=== PATIENT | male | born 2000 | race African-American/Black ===

== ENCOUNTER → 2018-11-28 | Outpatient (CLI) | payer MEDICAID ==
--- NOTE | 2018-11-30 17:55 | NEURO WORKBENCH EEG REPORT ---
EEG Report Patient: Hernandez Champion ID: [id number] Referring Doctor: Cabrera Yun Date: 11/28/2018 Reason for study: Evaluate Epileptiform activity Medications: Levetiracetam, Oxcarbazepine, Concerta, Guanfacine, Invega History: This is a 18 year old male with a history of memory loss, headaches, autism, and seizures starting in January 2018. This EEG was requested for evaluation of epileptiform activity. EEG Interpretation: This EEG was recorded during wakefulness, stage I, and stage II sleep. The awake EEG is characterized by a background with a reactive dominant rhythm of approximately 7-8 Hz (often frontally or centrally predominant). The remainder of the background consisted of typically global 5-7 Hz theta activity and low amplitude frontally predominant beta activity. The EEG is symmetric in amplitudes and frequencies. Photic stimulation resulted in minimal photic driving, and there was no epileptiform activity elicited with photic stimulation. Hyperventilation resulted in the appearance of intermittent diffuse 4-7 Hz theta and intermixed 1-3 Hz delta activity (normal for age) and no epileptiform activity was elicited. Stage I sleep was achieved and characterized by slowing of the background rhythm with more diffuse theta activity. Stage II sleep was achieved and K complexes were noted. There were no epileptiform abnormalities (no sharp waves and no spikes). There were no seizures. The EKG showed a regular rhythm with typically 60-80 beats per minute. EEG Impression: This EEG is mildly abnormal due to minor slowing of the background EEG activity with a background of approximately 7-8 Hz (typical normal background activity for a 20 year old male should be above 8 Hz). It is possible that this globally minorly slow background could be due to medication effect; however, I have reviewed the medical literature regarding levetiracetam, oxcarbazepine, and Invega (paliperidone), and the only medication showing possibly background activity slowing that I have found is oxcarbazepine (which may cause possible slowing of background alpha activity, and this does not seem to be a well recognized and consistent EEG effect). It should be noted that the literature on these medications and their effect on background EEG activity is sparse (in particular with paliperidone). Therefore, I cannot confidently conclude that the minorly slow background EEG activity is due to the patients current medications, although this should remain a possibility. The patient did seem a bit drowsy during the recording, and drowsiness can certainly cause global background slowing. However, before concluding this is merely an EEG with prominent drowsiness, I would have liked to see a more robust and prominent posterior dominant rhythm sustained in the alpha range for at least a brief period of the recording, which I did not appreciate. Therefore, I would consider this EEG minorly abnormal due to diffuse background slowing typically in the theta range (usually 7Hz dominant rhythm). This is a non-specific finding which as noted above should be considered possibly due to medications and/or drowsiness. However, I cannot conclude this is indeed the underlying etiology. Other considerations include (but are not limited to) cognitive dysfunction as may be seen with congenital disorders or diminished cerebral blood flow. Of note, there was no epileptiform activity or seizures during this EEG which seems particularly relevant in this patient with a clinical history of seizures. However, a single normal routine EEG does not rule out the possibility of epilepsy. And it should be noted that the patient is taking oxcarbazepine and levetiracetam which may suppress interictal epileptiform activity. If there is high clinical suspicion for epilepsy, then additional EEG evaluation should be considered with a sleep-deprived EEG or more prolonged EEG monitoring, including long-term video EEG monitoring. INTERPRETING NEUROLOGIST: Kel Hopkins MD Board certified by the [place] [employer] in Neurology, Clinical Neurophysiology, and Sleep Medicine [facility]
== END ==
LOC: NEURO 12:35
PROVIDERS: ATTEND Pediatrics
DX: G40.909 Epilepsy, unspecified, not intractable, without status epilepticus (principal)
CPT/HCPCS: 95819